=== PATIENT | male | born 1960 | race Caucasian/White ===

== ENCOUNTER 2019-03-03 06:30 | Day surgery (SDC) | payer OTHER ==
[~2019-03-03 06:30] MED LIST: ALFUZOSIN HCL E10 MG PO; ALL DAY ALLG10 MG PO; BENAZEPRIL10 MG PO; MICROZIDE12.5 MG PO; SINGULAIR10 MG PO; VITAMIN B-12500 MCG PO
[2019-03-03 08:41] VITALS: BP 119/84
== END 2019-03-03 12:05 | disposition home or self-care (01) | DRG 392 ==
LOC: ENDO 06:30 → ORM 15:30
PROVIDERS: ATTEND Internal Medicine Gastroenterology
PROC: 0DB48ZX Excision of Esophagogastric Junction, Via Natural or Artificial Opening Endoscopic, Diagnostic (ICD-10-PCS; principal; 2019-03-03)
PROC: 0DB78ZX Excision of Stomach, Pylorus, Via Natural or Artificial Opening Endoscopic, Diagnostic (ICD-10-PCS; 2019-03-03)
DX: K29.50 Unspecified chronic gastritis without bleeding (principal); K21.9 Gastro-esophageal reflux disease without esophagitis; I10 Essential (primary) hypertension